=== PATIENT | female | born 1945 | race Caucasian/White ===

== ENCOUNTER → 2017-06-13 | Outpatient (CLI) | payer MEDICARE, OTHER | END | disposition home or self-care (01) | LOC: MMGSC 16:08 | PROVIDERS: ATTEND Family Medicine | DX: J02.9 Acute pharyngitis, unspecified (principal) | CPT/HCPCS: 87070 ==

== ENCOUNTER → 2019-03-19 | Outpatient (CLI) | payer MEDICARE, OTHER ==
--- NOTE | 2019-03-19 21:38 | CT ---
EXAMINATION TYPE: CT abdomen pelvis w con DATE OF EXAM: 03/19/2019 COMPARISON: None HISTORY: Abdominal pain. CT DLP: 589 mGycm Automated exposure control for dose reduction was used. TECHNIQUE: Helical acquisition of images was performed from the lung bases through the pelvis. CONTRAST: Performed with Oral Contrast and with IV Contrast, patient injected with 100ml mL of Isovue 300. FINDINGS: There is minimal subsegmental atelectasis at the lung bases. There is no pleural effusion. Heart size is normal. There is no pericardial effusion. Stomach appears normal. Liver spleen pancreas gallbladder appear normal. Bile ducts are not dilated. There is no adrenal mass. There is mild thickening of the diaphragmatic crura. I see no periaortic ad enopathy. Kidneys show satisfactory contrast opacification. There is a 1 cm cyst upper pole right kid edwardo. There is no hydronephrosis. Ureters are not dilated. Bladder distends smoothly. There is retained fecal material in the large bowel. There is no free air. There is no ascites. I see no mesenteric edema. I see no intestinal wall thickening. Appendix is lat eral to the cecum on the right side and appears within normal limits. There is disc space narrowing at L5-S1. I see no bony destructive process. Bony pelvis is intact. IMPRESSION: THERE IS CONSTIPATION. NORMAL APPENDIX. MILD THICKENING OF THE DIAPHRAGMATIC CRURA BUT NO OTHER SIGN OF ANY ADENOPATHY.
== END | disposition home or self-care (01) ==
LOC: RADCTMAIN 18:46
PROVIDERS: ATTEND Family Medicine
DX: K59.00 Constipation, unspecified (principal); J98.6 Disorders of diaphragm
CPT/HCPCS: 82565; 84520; 74177; 36415; Q9967

== ENCOUNTER 2021-05-24 09:41 | Day surgery (SDC) | payer MEDICARE, OTHER ==
[2021-05-22 11:09] VITALS: BMI 19.2
--- NOTE | 2021-05-24 08:50 | P.GSHP ---
History of Present Illness H&P Date: 05/24/21 CHIEF COMPLAINT: GERD HISTORY OF PRESENT ILLNESS: The patient is a 76-year-old female who presents reports gastroesophageal reflux disease. Upper endoscopy was offered for further evaluation and management. PAST MEDICAL HISTORY: Please see list. PAST SURGICAL HISTORY: Please see list. MEDICATIONS: Please see list. ALLERGIES: Please see list. SOCIAL HISTORY: No illicit drug use FAMILY HISTORY: No reports of Crohn disease or ulcerative colitis. REVIEW OF ORGAN SYSTEMS: CONSTITUTIONAL: No reports of fevers or chills. GI: Denies any blood in stools or constipation. PHYSICAL EXAM: VITAL SIGNS: Stable GENERAL: Well-developed and pleasant in no acute distress. HEENT: No scleral icterus. Extraocular movements grossly intact. Moist buccal mucosa. NECK: Supple without lymphadenopathy. CHEST: Unlabored respirations. Equal bilateral excursions. CARDIOVASCULAR: Regular rate and rhythm. Distal 2+ pulses. ABDOMEN: Soft, nondistended. MUSCULOSKELETAL: No clubbing, cyanosis, or edema. ASSESSMENT: 1. Gastroesophageal reflux disease PLAN: 1. Recommend proceeding with an upper endoscopy Past Medical History Past Medical History: Cancer, Fibromyalgia, GERD/Reflux, Osteoarthritis (OA) Additional Past Medical History / Comment(s): migraines, diff swallowing food and pills, constipation, hx skin cancer, hx anemia, History of Any Multi-Drug Resistant Organisms: None Reported Past Surgical History: Section, Tonsillectomy Additional Past Surgical History / Comment(s): skin cancer removed from face, colonoscopy Past Anesthesia/Blood Transfusion Reactions: Motion Sickness Smoking Status: Never smoker - Past Family History Mother Family Medical History: No Reported History Medications and Allergies Home Medications Medication Instructions Recorded Confirmed Type Acetaminophen [Tylenol] 500 mg PO DIRECTED PRN 04/06/21 05/22/21 History Calcium Lactate 6 tab PO DAILY 04/06/21 05/22/21 History Cholecalciferol (Vitamin D3) 125 mcg PO DAILY 04/06/21 05/22/21 History [Vitamin D3 (5000 Iu)] [place] 2 tab PO DAILY 04/06/21 05/22/21 History Thyroid,Pork [[place] Thyroid] 30 mg PO SUMOTUTHFR 04/06/21 05/22/21 History Vitamin A Tab 450 mcg PO DAILY 04/06/21 05/22/21 History Copper Tab 2 mg PO DAILY 05/22/21 05/22/21 History Ostra 1 tab PO DAILY 05/22/21 05/22/21 History Vitamin B Complex 1 each PO DAILY 05/22/21 05/22/21 History Zinc Tab 60 mg PO BID 05/22/21 05/22/21 History Allergies Allergy/AdvReac Type Severity Reaction Status Date / Time latex Allergy blisters Verified 05/22/21 11:01 shellfish derived [Shellfish] Allergy Nausea Verified 05/22/21 11:01 yellow hornets Allergy cellulitis,red Uncoded 05/22/21 11:01 streaks
[~2021-05-24 09:41] MED LIST: LIDOCAINE 1% (10MG/ML) FOR IV START INTRADERMA PRN
[2021-05-24 10:20] VITALS: TEMP 97.8
[2021-05-24] MEDS: LACTATED RINGERS 1,000 ML IV SCH ×2 (10:29→10:34)
[2021-05-24] MEDS ORDERED: PROPOFOL 10 MG/ML 20 ML VIAL IV ONE (10:36)
--- NOTE | 2021-05-24 11:10 | P.PCN ---
Date of Procedure: 05/24/21 Description of Procedure: PREOPERATIVE DIAGNOSIS: Dysphagia. POSTOPERATIVE DIAGNOSIS: Dysphagia. Hiatal hernia Zenker's diverticulum OPERATION: Esophagogastroduodenoscopy with rigid dilator over the guidewire 48 Fr. SURGEON: Julia Seymour MD ANESTHESIA: MAC. INDICATIONS: The patient is a 76-year-old male who presents with a history of dysphagia. Benefits and risks of the procedure were described. Informed consent was obtained. DESCRIPTION: The patient was brought into the endoscopy suite and laid in the left lateral decubitus position. After a timeout was confirmed, the procedure was initiated. An Olympus gastroscope was passed and the stomach was entered. Mild gastritis was identified. The scope was advanced to the duodenum which was unremarkable. Retroflexion the scope confirmed a Hill grade 2 lower esophageal valve. Next using an Salvadorean rigid dilator, a guidewire was placed through the pediatric gastroscope. Next the scope was withdrawn. A 48-Beninese rigid Salvadorean dilator was passed carefully along the posterior oropharynx to 45 cm and left in place for 2-3 minutes stretch. The dilator was withdrawn including the guidewire. The scope was reentered along the posterior oropharynx with no findings of full-thickness tear of the upper esophageal sphincter. A Zenker's diverticulum was identified. No full-thickness injury was encountered. The GI tract was desufflated. The patient tolerated the procedure well. FINDINGS: Squamocolumnar junction unremarkable at 42 cm. Upper esophageal stricture without ulceration Zenker's diverticulum upper esophagus Salvadorean rigid dilator 48-Beninese completed. Hiatus at 45 cm Hiatal hernia, 2 cm Diffuse gastritis. Hill grade 2 lower esophageal valve. LA grade A esophagitis. RECOMMENDATIONS: Upper endoscopy as needed Management of symptomatic Zenker's diverticulum Recommend esophagram Plan - Discharge Summary Discharge Rx Participant: No New Discharge Prescriptions: Continue Thyroid,Pork [[place] Thyroid] 30 mg PO SUMOTUTHFR Vitamin A Tab 450 mcg PO DAILY Copper Tab 2 mg PO DAILY Zinc Tab 60 mg PO BID Ostra 1 tab PO DAILY Cholecalciferol (Vitamin D3) [Vitamin D3 (5000 Iu)] 125 mcg PO DAILY Altha [place] 2 tab PO DAILY Calcium Lactate 6 tab PO DAILY Acetaminophen [Tylenol] 500 mg PO DIRECTED PRN PRN Reason: Pain Vitamin B Complex 1 each PO DAILY Discharge Medication List Acetaminophen [Tylenol] 500 mg PO DIRECTED PRN 04/06/21 [History] Calcium Lactate 6 tab PO DAILY 04/06/21 [History] Cholecalciferol (Vitamin D3) [Vitamin D3 (5000 Iu)] 125 mcg PO DAILY 04/06/21 [History] Altha [place] 2 tab PO DAILY 04/06/21 [History] Thyroid,Pork [[place] Thyroid] 30 mg PO SUMOTUTHFR 04/06/21 [History] Vitamin A Tab 450 mcg PO DAILY 04/06/21 [History] Copper Tab 2 mg PO DAILY 05/22/21 [History] Ostra 1 tab PO DAILY 05/22/21 [History] Vitamin B Complex 1 each PO DAILY 05/22/21 [History] Zinc Tab 60 mg PO BID 05/22/21 [History] Follow up Appointment(s)/Referral(s): Julia Seymour MD [STAFF PHYSICIAN] - 05/30/21 Patient Instructions/Handouts: Esophageal Dilation (DC), Hiatal Hernia (DC) Activity/Diet/Wound Care/Special Instructions: Diet as tolerated Discharge Disposition: HOME SELF-CARE
[2021-05-24 11:25] VITALS: BP 117/71; PULSE 72; RESP 16
== END 2021-05-24 12:09 | disposition home or self-care (01) ==
LOC: ORWHC2ENDO 09:41
PROVIDERS: ATTEND Surgery Plastic and Reconstructive Surgery
DX: K21.00 Gastro-esophageal reflux disease with esophagitis, without bleeding (principal); K29.70 Gastritis, unspecified, without bleeding; K22.5 Diverticulum of esophagus, acquired; K44.9 Diaphragmatic hernia without obstruction or gangrene; M79.7 Fibromyalgia; M19.90 Unspecified osteoarthritis, unspecified site; G43.909 Migraine, unspecified, not intractable, without status migrainosus; Z85.828 Personal history of other malignant neoplasm of skin; Z86.2 Personal history of diseases of the blood and blood-forming organs and certain disorders involving the immune mechanism; Z98.891 History of uterine scar from previous surgery; Z90.89 Acquired absence of other organs; Z98.890 Other specified postprocedural states; Z79.890 Hormone replacement therapy; Z91.038 Other insect allergy status; Z91.040 Latex allergy status; Z91.013 Allergy to seafood
CPT/HCPCS: 43248; J2704; 43249

== ENCOUNTER → 2021-06-21 | Outpatient (CLI) | payer MEDICARE, OTHER ==
--- NOTE | 2021-06-22 08:00 | US ---
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 Multinodular goiter and dysphagia per order. Patient has trouble swallowing. Patient is currently taking thyroid medication. TECHNIQUE: Multiple sonographic images of the thyroid gland are obtained. FINDINGS: GLAND SIZE: Right Lobe: 5.6 x 2.6 x 2.2 cm Overall Parenchyma: heterogenous Left Lobe: 4.8 x 2.1 x 2.0 cm Overall Parenchyma: heterogeneous Isthmus Thickness: 0.2 cm Numerous bilateral nodules. The largest are measured below. NODULES RIGHT: # of nodules measured on right: 3 1. 1.4 X 1.5 x 0.7 cm, upper, mixed cystic and solid TR 3 nodule, which is wider than tall, with sm ooth margins, with no definite calcifications at this time Prior size: No prior. 2. 1.3 X 1.0 x 0.7 cm, mid, mixed cystic and solid TR 3 nodule, which is wider than tall, with smoo th margins Prior size: No prior. 3. 1.2 X 0.9 x 1.0 cm, lower, solid or almost completely solid, slightly hypoechoic TR4 nodule, whi ch is wider than tall, with smooth margins, with no definite calcifications. Prior size: No prior. Additional nodules seen, largest measured. LEFT: # of nodules measured on left: 3 1. 1.1 X 1.1 x 1.0 cm, mid, mixed cystic and solid TR3 nodule, which is wider than tall, with yoselin h margins, without echogenic foci. Prior size: No prior. 2. 0.7 X 0.6 x 0.5 cm, mid, mixed cystic and solid TR 3 nodule, which is wider than tall, with ill -defined margins. Prior size: No prior. 3. 0.5 X 0.6 x 0.5 cm, lower, mixed cystic and solid nodule, which is wider than tall, with smooth margins, possible colloid cyst Prior size: No prior. ISTHMUS: # of nodules measured in the isthmus: 0 Additional nodules seen, largest measured. Bilateral neck scanned, no evidence of lymphadenopathy. Complex area of uncertainty seen posterior to the thyroid gland versus within the thyroid gland rob surin.2 x 1.5 x 1.2 cm. IMPRESSION: 1. The engineering test specialist indicates a complex area posterior to the left lobe of the thyroid gland measuring 2.2 x 1.5 x 1.2 cm. Contrast-enhanced CT neck can better characterize. Unable to determine if this r epresents an abnormal lymph node, other mass, exophytic thyroid nodule, or part of the esophagus. 2. Multinodular goiter. Multiple mixed solid and cystic TR 3 nodules are present, the largest of whic h measure up to 1.5 cm on the right. These nodules should be followed and FNA performed if they reach 2.5 cm. 3. A TR 4 solid nodule right lower pole measures 1.2 cm. This should also be followed and FNA could b e performed if it reaches 1.5 cm. 2017 ACR TI-RADS LEVEL: TR4 *Highest TI-RADS level nodule reported
== END | disposition home or self-care (01) ==
LOC: RADUSWWP 16:51
PROVIDERS: ATTEND Surgery Plastic and Reconstructive Surgery
DX: E04.2 Nontoxic multinodular goiter (principal); R13.10 Dysphagia, unspecified
CPT/HCPCS: 76536

== ENCOUNTER → 2022-01-23 | Outpatient (CLI) | payer MEDICARE, OTHER ==
--- NOTE | 2022-01-23 15:56 | US ---
EXAMINATION TYPE: US thyroid st tissue head/neck DATE OF EXAM: 01/23/2022 COMPARISON: US 2020 CLINICAL HISTORY: E04.1. Thyroid nodules GLAND SIZE: Right Lobe: 5.6 x 1.7 x 2.4 cm Overall Parenchyma: heterogenous Left Lobe: 4.7 x 1.6 x 2.0 cm Overall Parenchyma: heterogeneous Isthmus Thickness: 0.1 cm NODULES RIGHT: # of nodules measured on right: multiple nodules with largest described below 1. 1.5 X 0.8 x 1.2 cm, mid , cystic or almost completely cystic, hypoechoic nodule, which is wider than tall, with smooth margins, without echogenic foci. Prior size: 1.3 x 0.7 x 1.0 cm LEFT: # of nodules measured on left: multiple nodules with largest described below 1. 1.7 X 1.0 x 1.1 cm, lower mid, mixed cystic and solid, hypoechoic nodule, which is wider than ta ll, with smooth margins, without echogenic foci. Prior size: 1.1 x 1.0 x 1.1 cm ISTHMUS: # of nodules measured in the isthmus: 0 Bilateral neck scanned, no evidence of lymphadenopathy. Heterogeneous normal-sized thyroid with multiple nodules. Largest solid and cystic nodules fairly sta ble in appearance when accounting for technical differences. IMPRESSION: Findings consistent with multinodular goiter redemonstrated.
== END | disposition home or self-care (01) ==
LOC: RADUSWWP 14:59
PROVIDERS: ATTEND Otolaryngology
DX: E04.2 Nontoxic multinodular goiter (principal)
CPT/HCPCS: 76536

== ENCOUNTER → 2022-08-15 | Outpatient (CLI) | payer MEDICARE, OTHER ==
--- NOTE | 2022-08-16 09:23 | US ---
EXAMINATION TYPE: US thyroid st tissue head/neck DATE OF EXAM: 08/15/2022 COMPARISON: Ultrasounds dated 06/21/2021 & 01/23/2022 CLINICAL HISTORY: 77-year-old female E04.1 Thyroid nodule. TECHNIQUE: Multiple sonographic images of the thyroid gland are obtained. FINDINGS: GLAND SIZE: Right Lobe: 6.1 x 2.1 x 2.6 cm Overall Parenchyma: heterogenous Left Lobe: 5.0 x 1.8 x 1.9 cm Overall Parenchyma: heterogeneous Isthmus Thickness: 0.2 cm NODULES RIGHT: # of nodules measured on right: 2 1. 1.6 X 0.9 x 1.2 cm, mid mid, mixed cystic and solid, hypoechoic TR 3 nodule, which is wider than tall, with smooth margins, without echogenic foci. Prior size: 1.5 x 0.8 x 1.2 cm 2. A smaller debris-filled cyst measuring 1.4 cm is present just above. LEFT: # of nodules measured on left: 1 1. 1.6 X 1.0 x 1.2 cm, mid to lower pole, mixed cystic and solid, hypoechoic TR 3 nodule, which is wider than tall, with smooth margins, without echogenic foci. Prior size: 1.7 x 1.0 x 1.1 cm A number of additional small colloid cysts measuring up to 5 mm are demonstrated. ISTHMUS: # of nodules measured in the isthmus: 0 Bilateral neck scanned, no evidence of lymphadenopathy. Machine Pecan Gatherer notes: Multiple bilateral nodules, largest measured. IMPRESSION: Correlate for multinodular goiter. The largest nodules are measured and correspond to mixed solid cys tic TR 3 nodules on either side, relatively unchanged measuring up to 1.6 cm. 2017 ACR TI-RADS LEVEL: TR-RADS 3 - Mildly Suspicious: Follow if > 1.5 cm, FNA if > 2.5 cm *Highest TI-RADS level nodule reported
== END | disposition home or self-care (01) ==
LOC: RADUSWWP 15:42
PROVIDERS: ATTEND Otolaryngology
DX: E04.2 Nontoxic multinodular goiter (principal)
CPT/HCPCS: 76536

== ENCOUNTER → 2024-04-22 | Outpatient (CLI) | payer MEDICARE, OTHER ==
--- NOTE | 2024-04-22 13:37 | FL ---
ESOPHOGRAM. HISTORY: Dysphagia Esophagram was performed per the air contrast technique. The patient swallowed barium and effervesce nt crystals without difficulty or delay. Esophageal peristalsis and motility appear to be within normal limits. There is a large Zenker's diverticulum noted extending from the inferior endplate of C6 through the m idportion of T1 with craniocaudal measurement of 4 cm and AP measurement of 2 cm. The opening of the diverticulum appears to measure 5 mm. Examination is limited given the fact that the patient did aspi rate and examination was terminated prior to all images could be obtained. No hiatal hernia seen. Subsequently single contrast cervical esophagram was performed which demonstrates aspiration of bariu m content. IMPRESSION: 1. Zenker's diverticulum as discussed. 2. Evidence of aspiration.
== END | disposition home or self-care (01) ==
LOC: RADUSWWP 11:03
PROVIDERS: ATTEND Internal Medicine Gastroenterology
DX: K22.5 Diverticulum of esophagus, acquired (principal)
CPT/HCPCS: 74220